=== PATIENT | female | born 1965 | race Caucasian/White ===

== ENCOUNTER → 2017-12-11 12:53 | Outpatient (CLI) | payer MEDICARE, MEDICAID, SELFPAY ==
--- NOTE | 2017-12-11 | DI.CT.S_ITS ---
PROCEDURE: CT ABDOMEN PELVIS WO/W CON INDICATIONS: Hematuria TECHNIQUE: Optional 5 mm thick noncontrast images acquired from the diaphragm to the symphysis pubis. After the administration of intravenous contrast, 5 mm thick images acquired from the diaphragm to the symphysis pubis after a 10-minute delay. 2 mm thick coronal and sagittal reformats were then performed of the kidneys and ureters. For radiation dose reduction, the following was used: automated exposure control, adjustment of mA and/or kV according to patient size. COMPARISON: [facility], CT, ABD/PELVIS W/CON (PNL), 02/13/2014, 15:57. [facility], [place], RENAL COMPLETE, 05/22/2010, 8:22. [facility], CT, KIDNEY/ URETER/BLADDER, 12/20/2008, 14:48. CT, KIDNEY/ URETER/BLADDER, 01/20/2007, 8:20. [facility], CT, KUB - CT (PNL), 12/12/2014, 22:38. [facility], CT, KIDNEY/ URETER/BLADDER, 11/07/2017, 9:52. FINDINGS: Image quality: Excellent. Lung bases: Lung bases are clear. Heart size is normal. Urinary system: Both kidneys are normal in size, without hydronephrosis or nephrolithiasis on pre-contrast images. No perinephric fat stranding. There is normal bilateral renal enhancement. Renal calyces appear normal in morphology when filled with contrast. Opacified portions of both ureters demonstrate normal caliber. The distal ureters are opacified. Small bilateral lateral wall urinary bladder diverticuli are noted. Slight thickening and irregularity noted along the posterior and superior margin of the urinary bladder which could be due to poor distention versus chronic inflammation or an infiltrating neoplasm.. No calcified bladder stones. Other solid organs: Liver is normal in size and enhancement. Gallbladder is contracted which limits diagnostic sensitivity, however no gross abnormalities identified.. Biliary system is non dilated. Pancreas enhances normally. Spleen is normal in size and enhancement. No adrenal nodules. Peritoneum and bowel: Bowel loops demonstrate normal wall thickness and caliber. No free fluid or air. The appendix is normal. Nodes and vessels: No retroperitoneal or mesenteric adenopathy by size criteria. Aorta and inferior vena cava are normal in size. Abdominal wall: Small fat containing umbilical hernia. Pelvis: No pathologic free pelvic fluid. No inguinal hernias or adenopathy. Bones: No suspicious bony lesions. No vertebral body compression fractures. IMPRESSION: 1. No renal stones or hydronephrosis. 2. No abnormal renal masses. 3. No filling defects identified in the opacified portions of the genitourinary collecting systems. Please note the distal ureters are unopacified and subtle urothelial based lesions cannot be excluded in the distal ureters. 4. Slight thickening and irregularity involving the posterior and superior urinary bladder wall. Findings may be related to poor bladder distention, however the finding is nonspecific and other etiologies including chronic inflammation an infiltrating neoplasm cannot be demonstrated by CT imaging. Recommend urology consultation for cystoscopy for definitive characterization. 5. Small urinary bladder diverticuli. Dictated by: Shira Aguero MD, PhD on 12/11/2017 at 15:57 Approved by: Shira Aguero MD, PhD on 12/11/2017 at 16:05
== END ==
PROVIDERS: Family Provider Family Medicine; PCP Family Medicine; Visit Provider Physician Assistant
DX: R31.0 Gross hematuria (principal); N32.89 Other specified disorders of bladder
CPT/HCPCS: 74178; Q9967